=== PATIENT | female | born 1990 ===

== ENCOUNTER 2022-09-23 19:40 | Emergency (ER) | payer SELFPAY ==
[~2022-09-23] VITALS: Ht 160 cm; Wt 63.6 kg
[2022-09-23 19:46] VITALS: BP 131/85
== END 2022-09-23 20:05 | disposition home or self-care (01) ==
LOC: ER 19:41
DX: V88.7XXA Person injured in collision between other specified motor vehicle, nontraffic, initial encounter; Y93.89 Activity, other specified; Y92.89 Other specified places as the place of occurrence of the external cause; Y99.8 Other external cause status
CPT/HCPCS: 82948; 99283